=== PATIENT | female | born 1990 | race Caucasian/White ===

== ENCOUNTER 2016-09-22 11:51 | Emergency (ER) | payer OTHER ==
[2016-09-22 11:57] VITALS: BP 103/74; PULSE 96; TEMP 98.1; BMI 23.8
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
[2016-09-22] MEDS ORDERED: KETOROLAC TROMETHAMINE 60 MG/2 ML VIAL IM ONE (12:44)
[2016-09-22] MEDS ORDERED: diazePAM 2 MG TABLET PO ONE (13:05)
[2016-09-22] MEDS ORDERED: KETOROLAC TROMETHAMINE 60 MG/2 ML VIAL ONE (13:45)
[2016-09-22] MEDS ORDERED: diazePAM 2 MG TABLET ONE (13:46)
== END 2016-09-22 14:14 | disposition home or self-care (01) ==
LOC: JER 11:51 → JERFT 11:51
PROC: 3E0233Z Introduction of Anti-inflammatory into Muscle, Percutaneous Approach (ICD-10-PCS; principal; 2016-09-22)
DX: M62.838 Other muscle spasm (principal); S40.022A Contusion of left upper arm, initial encounter; V43.52XA Car driver injured in collision with other type car in traffic accident, initial encounter; Y92.412 Parkway as the place of occurrence of the external cause; W22.11XA Striking against or struck by driver side automobile airbag, initial encounter; Y93.89 Activity, other specified
CPT/HCPCS: 70450-TC; 71020-TC; 72050-TC; 84703; 99281-25

== ENCOUNTER 2019-02-27 18:03 | Emergency (ER) | payer OTHER ==
[2019-02-27 18:12] VITALS: TEMP 97.9; BMI 28.6
--- NOTE | 2019-02-27 19:53 | PDOC ---
History of Present Illness - General Chief Complaint: Pain Stated Complaint: ABDOMINAL PAIN/15 WEEKS Time Seen by Provider: 02/27/19 18:50 - History of Present Illness Initial Comments: 02/27/19 19:48 CHIEF COMPLAINT: abdominal pain in HISTORY OF PRESENT ILLNESS: 29 yo F (LMP 11/14) presents to ED with abdominal pain since yesterday. Patient reports that the pain is all around the lower half of her abdomen and feels like pressure, particularly with movement. Patient denies any vaginal bleeding but endorses constant cramping. Patient does report urinary frequency, denies any hematuria. She reports increased vaginal discharge "that fills a pantyliner." Denies any vomiting, diarrhea, fevers, chills. No recent travel or sick contacts. PAST MEDICAL HISTORY: Denies past medical history FAMILY HISTORY: Denies SOCIAL HISTORY: Denies tobacco, alcohol, illicit drug use. SURGICAL HISTORY: Denies ALLERGIES: No known drug allergies REVIEW OF SYSTEMS General/Constitutional: Denies fever or chills. Denies weakness, weight change. HEENT: Denies change in vision. Denies ear pain or discharge. Denies sore throat. Cardiovascular: Denies chest pain or shortness of breath. Respiratory: Denies cough, wheezing, or hemoptysis. Gastrointestinal: Denies nausea, vomiting, diarrhea or constipation. Denies rectal bleeding. Genitourinary: Abdominal pain x 2 days. Denies vomiting, diarrhea, constipation. Musculoskeletal: Denies joint or muscle swelling or pain. Denies neck or back pain. Skin and breasts: Denies rash or easy bruising. Neurologic: Denies headache, vertigo, loss of consciousness, or loss of sensation. Psychiatric: Denies depression or anxiety. PHYSICAL EXAM General Appearance: Well-appearing, appropriately dressed. No apparent distress ,. HEENT: EOMI, PERRLA, normal ENT inspection, normal voice, TMs normal, pharynx normal. No conjunctival pallor. No photophobia, scleral icterus. Neck: Supple. Trachea midline. No tenderness, rigidity, carotid bruit, stridor , lymphadenopathy, or thyromegaly. Respiratory/Chest: Lungs CTAB. No shortness of breath, chest tenderness, respiratory distress, accessory muscle use. No crackles, rales, rhonchi, stridor , wheezing, dullness Cardiovascular: RRR. S1, S2. No JVD, murmur, bradycardia, tachycardia. Vascular Pulses: Dorsalis-Pedis (R): 2+, Dorsalis-Pedis (L): 2+ Gastrointestinal/Abdominal: Tenderness to b/l lower abdomen. Normal bowel sounds. Abdomen soft, non-distended. No tenderness or rebound tenderness. No organomegaly, pulsatile mass, guarding, hernia, hepatomegaly, splenomegaly. Lymphatic: No adenopathy, tenderness. Musculoskeletal/Extremities: Normal inspection. FROM of all extremities, normal capillary refill. Pelvis Stable. No CVA tenderness. No tenderness to extremities, pedal edema, swelling, erythema or deformity. Integumentary: Appropriate color, dry, warm. No cyanosis, erythema, jaundice or rash Neurologic: data software engineer II-XII intact. Fully oriented, alert. Appropriate mood/affect. Motor strength 5/5. No appreciable EOM palsy, facial droop or sensory deficit. Past History - Past Medical History Allergies/Adverse Reactions: Allergies Allergy/AdvReac Type Severity Reaction Status Date / Time No Known Allergies Allergy Verified 02/27/19 18:10 Home Medications: Ambulatory Orders Diazepam [Valium] 5 mg PO Q8H PRN #15 tablet MDD 15mg 09/22/16 Naproxen [Naprosyn -] 500 mg PO BID PRN #28 tablet 09/22/16 Acetaminophen [Tylenol .Regular Strength -] 650 mg PO Q6H #100 tablet 02/27/19 COPD: No CHF: No DVT: No - Immunization History Immunization Up to Date: Yes - Psycho Social/Smoking Cessation Hx Smoking History: Never smoked Have you smoked in the past 12 months: No Information on smoking cessation initiated: No Hx Alcohol Use: No Drug/Substance Use Hx: No Substance Use Type: None *Physical Exam - Vital Signs Last Vital Signs Temp Pulse Resp BP Pulse Ox 97.9 F 72 16 117/64 100 02/27/19 18:10 02/27/19 18:10 02/27/19 18:10 02/27/19 18:10 02/27/19 18:10 ED Treatment Course - LABORATORY CBC & Chemistry Diagram: 02/27/19 20:35 02/27/19 20:35 - RADIOLOGY Radiology Studies Ordered: Category Date Time Status TRANSVAGINAL US PREG [US] Stat Ultrasound 02/27/19 18:51 Ordered Medical Decision Making - Medical Decision Making 02/27/19 21:48 29 yo F (LMP 11/14) presents to ED with abdominal pain since yesterday. -labs, T&S, TVUS, urine labs unremarkable TVUS - IUP 15 wks 4 days, FHR 134 Tylenol given for pain Advised patient to take medication as prescribed and follow up with OB within the next week. Advised patient of signs and symptoms for return to ED. Patient verbalized understanding and agrees to plan. Discharge - Discharge Information Problems reviewed: Yes Clinical Impression/Diagnosis: Pain of round ligament during Condition: Stable Disposition: HOME - Admission No - Additional Discharge Information Prescriptions: Acetaminophen [Tylenol .Regular Strength -] 650 mg PO Q6H #100 tablet - Follow up/Referral Referrals: Laila Faith MD [Primary Care Provider] - - Patient Discharge Instructions Patient Printed Discharge Instructions: DI for Abdominal Pain -- Early Additional Instructions: Please take medications as prescribed and follow up with Dr. Faith within the next week for continued monitoring of your . If you develop any vaginal bleeding, abdominal cramping, fever, persistent vomiting, diarrhea, or any new or worsening symptoms, please return to the ER. - Post Discharge Activity
[2019-02-27 21:09] LABS: BASO % 0.5 % (0-2.0); HEMATOCRIT 36.7 % (32.4-45.2); HEMOGLOBIN 12.1 GM/dL (10.7-15.3); LYMPH % 22.4 % (8-40); MCH 31.5 pg (25.7-33.7); MEAN CELL VOLUME 95.2 fl (80-96); MEAN PLT VOLUME 9.2 fl (7.5-11.1); MONO % 4.2 % (3.8-10.2); NEUT % 71.9 % (42.8-82.8); PLATELET COUNT 150 K/MM3 (134-434); RBC 3.86 M/mm3 (3.60-5.2); RDW 13.6 % (11.6-15.6); WHITE BLOOD COUNT 12.6 K/mm3 (4.0-10.0)
[2019-02-27 21:21] LABS: EPI CELLS 6.6 /HPF (0-5/HPF); HYALINE CASTS 4 /lpf (0-8); PH,URINE 6.5 (5.0-8.0); URINE APPEARANCE CLOUDY; URINE BACTERIA 262.4 /hpf (NEGATIVE); URINE BILIRUBIN NEGATIVE (NEGATIVE); URINE COLOR YELLOW; URINE GLUCOSE (UA) NEGATIVE (NEGATIVE); URINE KETONE NEGATIVE (NEGATIVE); URINE LEUK ESTERASE 1+ (NEGATIVE); URINE NITRITE NEGATIVE (NEGATIVE); URINE PROTEIN NEGATIVE (NEGATIVE); URINE RBC 1 /hpf (0-4); URINE WBC 5 /hpf (0-5)
[2019-02-27 21:37] LABS: ALBUMIN 3.1 g/dl (3.4-5.0); BILIRUBIN,TOTAL 0.2 mg/dL (0.2-1); BLOOD UREA NITROGEN 8.3 mg/dL (7-18); CALCIUM 8.7 mg/dL (8.5-10.1); CREATININE 0.6 mg/dL (0.55-1.3); POTASSIUM 3.6 mmol/L (3.5-5.1); TOT PROT 6.4 g/dl (6.4-8.2)
[2019-02-27] MEDS ORDERED: ACETAMINOPHEN 500 MG TABLET (FP) PO ONE (21:47)
[2019-02-27] MEDS ORDERED: ACETAMINOPHEN 325 MG TABLET (FP) ONE (22:02)
--- NOTE | 2019-02-27 22:13 | PDOC ---
*Physical Exam - Vital Signs Last Vital Signs Temp Pulse Resp BP Pulse Ox 97.9 F 72 16 117/64 100 02/27/19 18:10 02/27/19 18:10 02/27/19 18:10 02/27/19 18:10 02/27/19 18:10 ED Treatment Course - LABORATORY CBC & Chemistry Diagram: 02/27/19 20:35 02/27/19 20:35 - ADDITIONAL ORDERS Additional order review: Laboratory Results 02/27/19 02/27/19 02/27/19 21:05 20:35 20:35 Sodium 138 Potassium 3.6 Chloride 106 Carbon Dioxide 24 Anion Gap 8 BUN 8.3 Creatinine 0.6 Est GFR (CKD-EPI)AfAm 141.76 Est GFR (CKD-EPI)NonAf 122.31 Random Glucose 81 Calcium 8.7 Total Bilirubin 0.2 AST 15 ALT 18 Alkaline Phosphatase 52 Total Protein 6.4 Albumin 3.1 L Beta HCG, Quant 87677.3 Urine Color Yellow Urine Appearance Cloudy Urine pH 6.5 Ur Specific [place] 1.018 Urine Protein Negative Urine Glucose (UA) Negative Urine Ketones Negative Urine Blood Negative Urine Nitrite Negative Urine Bilirubin Negative Urine Urobilinogen 1.0 Ur Leukocyte Esterase 1+ H Urine WBC (Auto) 5 Urine RBC (Auto) 1 Urine Casts (Auto) 4 U Epithel Cells (Auto) 6.6 Urine Bacteria (Auto) 262.4 02/27/19 20:35 RBC 3.86 MCV 95.2 MCHC 33.0 RDW 13.6 MPV 9.2 Neutrophils % 71.9 Lymphocytes % 22.4 Monocytes % 4.2 Eosinophils % 1.0 Basophils % 0.5 - Medications Given in the ED: ED Medications Discontinued Medications Generic Name Dose Route Start Last Admin Trade Name Freq PRN Reason Stop Dose Admin Acetaminophen 975 mg 02/27/19 21:47 02/27/19 22:08 Tylenol - PO 02/27/19 21:48 975 mg ONCE ONE Administration Medical Decision Making - Medical Decision Making 02/27/19 22:13 Case reviewed, agree with assessment and plan Discharge - Discharge Information Problems reviewed: Yes Clinical Impression/Diagnosis: Pain of round ligament during Condition: Stable Disposition: HOME - Additional Discharge Information Prescriptions: Acetaminophen [Tylenol .Regular Strength -] 650 mg PO Q6H #100 tablet - Follow up/Referral Referrals: Laila Faith MD [Primary Care Provider] - - Patient Discharge Instructions Patient Printed Discharge Instructions: DI for Abdominal Pain -- Early Additional Instructions: Please take medications as prescribed and follow up with Dr. Faith within the next week for continued monitoring of your . If you develop any vaginal bleeding, abdominal cramping, fever, persistent vomiting, diarrhea, or any new or worsening symptoms, please return to the ER. - Post Discharge Activity
[2019-02-27 22:15] VITALS: BP 123/68; PULSE 73
== END 2019-02-27 22:10 | disposition home or self-care (01) ==
LOC: JER 18:03
DX: O26.892 Other specified pregnancy related conditions, second trimester (principal); R10.2 Pelvic and perineal pain; Z3A.15 15 weeks gestation of pregnancy
CPT/HCPCS: 36415; 76801-TC; 80053; 81003; 84702; 85025; 86850; 86900; 86901; 87086; 99283-25

== ENCOUNTER 2021-07-30 20:21 | Emergency (ER) | payer OTHER ==
[2021-07-30 20:39] VITALS: BP 126/79; PULSE 92; TEMP 98; BMI 27.8
== END 2021-07-30 22:36 | disposition home or self-care (01) ==
LOC: JERFT 20:21
PROC: 0U9MXZZ Drainage of Vulva, External Approach (ICD-10-PCS; principal; 2021-07-30)
DX: N76.4 Abscess of vulva (principal); N89.9 Noninflammatory disorder of vagina, unspecified
CPT/HCPCS: 10060; 36415; 87070; 87076; 87077; 87186; 87205; 87491; 87591; 87661; 99283-25

== ENCOUNTER 2024-08-28 17:43 | Inpatient (IN) | payer OTHER ==
[2024-08-28] MEDS ORDERED: SODIUM CHLORIDE 100 ML IVPB ONE (18:03)
[2024-08-28] MEDS ORDERED: AMPICILLIN SODIUM 2 GM VIAL ONE (18:03)
[2024-08-28] MEDS: AMPICILLIN - 2 GM in SODIUM CHLORIDE 100 ML IVPB ONE (18:05)
[2024-08-28] MEDS ORDERED: LIDOCAINE HCL 1% PRESERVATIVE FREE - 30ML VIAL ONE (18:11)
[2024-08-28] MEDS ORDERED: OXYTOCIN 20 UNITS in 0.9% NS 20 UNIT/1,000 ML INFUS.BAG IV ONE (18:11)
[2024-08-28] MEDS: OXYTOCIN 20 UNITS in 0.9% NS 20 UNIT/1,000 ML INFUS.BAG IV SCH (18:35)
[2024-08-28] MEDS ORDERED: BISACODYL 10 MG SUPP.RECT RC PRN (18:41)
[2024-08-28] MEDS ORDERED: oxyCODONE HCL 5 MG TABLET PO PRN (18:41)
[2024-08-28] MEDS ORDERED: WITCH HAZEL 50% (TUCKS) 40 PAD/JAR PAD TP PRN (18:41)
[2024-08-28] MEDS ORDERED: ELECTROLYTE-148 SOLN 1,000 ML IV SCH (18:45)
[2024-08-28 19:25] VITALS: BMI 33.4
[2024-08-28 19:26] LABS: CORD BASE EXCESS -2.3 mmol/L (0-2); CORD HCO3 24.2 mmHg (20-29); CORD PCO2 35.8 mmHg (30-78); CORD PCO2 47.8 mmHg (30-78); CORD pH 7.322 (7.14-7.44); CORD pH 7.407 (7.14-7.44)
[2024-08-28] MEDS: METHYLERGONOVINE MALEATE 0.2 MG/1 ML AMP IM PRN (21:00)
[2024-08-28 21:30] LABS: HEMATOCRIT 36.5 % (34.1-44.9); HEMOGLOBIN 11.6 g/dL (11.2-15.7); MCHC 31.8 g/dl (32.2-35.5); MEAN CELL VOLUME 96.3 fl (79.4-94.8); MEAN PLT VOLUME 10.5 fl (9.4-12.3); PLATELET COUNT 170 x10^3/uL (182-369); RDW 14.1 % (12.1-16.8)
[2024-08-28 21:34] LABS: INR 0.98 (0.83-1.09); PROTHROMBIN TIME (PATIENT) 10.8 SEC (9.7-13.0)
[2024-08-28 21:37] LABS: ACTIVATED PTT 23.6 SECONDS (25.2-36.5)
[2024-08-28 21:48] LABS: POTASSIUM 3.9 mmol/L (3.5-5.1)
[2024-08-28 21:49] LABS: CALCIUM 9.3 mg/dL (8.5-10.1)
[2024-08-28 21:50] LABS: BLOOD UREA NITROGEN 7.8 mg/dL (7-18)
[2024-08-28 21:53] LABS: CREATININE 0.8 mg/dL (0.55-1.3)
[2024-08-28] MEDS ORDERED: AMPICILLIN - 1 GM in SODIUM CHLORIDE 100 ML IVPB SCH (22:00)
[2024-08-28 22:40] LABS: HIV INTERPRETATION NEGATIVE (NEGATIVE)
[2024-08-29 07:20] LABS: ABSOLUTE IMMATURE GRANULOCYTES 0.13 x10^3/uL (0.0-0.031); BASOPHILS # 0.04 x10^3/uL (0.01-0.08); EOSINOPHIL % 0.6 % (0.7-5.8); HEMATOCRIT 35.9 % (34.1-44.9); HEMOGLOBIN 11.9 g/dL (11.2-15.7); MCHC 33.1 g/dl (32.2-35.5); MEAN CELL VOLUME 95.2 fl (79.4-94.8); MONOCYTE # 1.03 x10^3/uL (0.24-0.86); MONOCYTE % 5.7 % (4.7-12.5); PLATELET COUNT 148 x10^3/uL (182-369); RDW 13.9 % (12.1-16.8)
[2024-08-29] MEDS: IBUPROFEN 600 MG TABLET (FP) PO PRN (10:06)
[2024-08-29] MEDS: DIPHTH,PERTUSS(ACELL),TET 0.5 ML DISP.SYRIN IM ONE (10:07)
[2024-08-29] MEDS: BENZOCAINE 28 GM HEMORRHOIDAL OINTMENT TP PRN (15:49)
[2024-08-29] MEDS: BENZOCAINE 20% 57 GM BOTTLE TP PRN (15:49)
[2024-08-29] MEDS ORDERED: SENNOSIDES/DOCUSATE COMBO (SENNA PLUS) TABLET (UD) PO PRN (22:00)
[2024-08-30] MEDS: ACETAMINOPHEN 325 MG TABLET (FP) PO PRN (07:14)
[2024-08-30 09:26] VITALS: BP 112/70; PULSE 77; RESP 17; TEMP 98.1
== END 2024-08-30 11:50 | disposition home or self-care (01) | DRG 560 ==
LOC: JLDR 17:43 → J3W 21:52
PROVIDERS: ADMIT Obstetrics & Gynecology; ATTEND Obstetrics & Gynecology
PROC: 10E0XZZ Delivery of Products of Conception, External Approach (ICD-10-PCS; principal; 2024-08-28)
PROC: 0HQ9XZZ Repair Perineum Skin, External Approach (ICD-10-PCS; 2024-08-28)
PROC: 0W8NXZZ Division of Female Perineum, External Approach (ICD-10-PCS; 2024-08-28)
DX: O70.0 First degree perineal laceration during delivery (principal); Z3A.40 40 weeks gestation of pregnancy; Z37.0 Single live birth
CPT/HCPCS: 36415; 36600; 59409; 80048; 82803; 85025; 85610; 85730; 86780; 86850; 86900; 86901; 87389; 90715